=== PATIENT | female | born 1945 | race Caucasian/White ===

== ENCOUNTER 2016-03-06 14:28 | Emergency (ER) | payer MEDICARE, MEDICAID ==
[2016-04-06] MEDS ORDERED: CULTURELLE1 CAP PO (18:05)
[2016-04-06] MEDS ORDERED: PENTASA500 MG PO (18:05)
[2016-04-06] MEDS ORDERED: COLESTID1 GM PO (18:05)
[2016-04-06] MEDS ORDERED: LIPITOR DPS40 MG PO (18:06)
[2016-04-06] MEDS ORDERED: FEOSOL-DPS325 MG PO (18:06)
[2016-04-06] MEDS ORDERED: FOLVITE-DPS1 MG PO (18:06)
[2016-04-06] MEDS ORDERED: DESYREL-DPS50 MG PO (18:06)
[2016-04-06] MEDS ORDERED: LEXAPRO DPS20 MG PO (18:06)
[2016-04-06] MEDS ORDERED: NEURONTIN DPS600 MG PO (18:07)
[2016-04-06] MEDS ORDERED: VITAMIN B1100 MG PO (18:07)
[2016-04-06] MEDS ORDERED: PLAVIX75 MG PO (18:07)
[2016-04-06] MEDS ORDERED: PROTONIX40 MG PO (18:07)
[2016-04-06] MEDS ORDERED: MICRO-K DPS10 MEQ PO (18:07)
[2016-04-06] MEDS ORDERED: DUONEB DPS3 ML IH ×2 (18:08→18:11)
[2016-04-06] MEDS ORDERED: ZYLOPRIM-DPS300 MG PO (18:08)
[2016-04-06] MEDS ORDERED: VITAMIN D1000 UNI1 PO (18:08)
[2016-04-06] MEDS ORDERED: XALATAN2.5 ML OU (18:08)
[2016-04-06] MEDS ORDERED: NORCO 7.5-3251 EACH PO (18:09)
[2016-04-06] MEDS ORDERED: DURAGESIC-1212 MCG TD (18:09)
[2016-04-06] MEDS ORDERED: IMODIUM DPS2 MG PO (18:09)
[2016-04-06] MEDS ORDERED: CEPACOL SORE T1 EACH PO (18:09)
[2016-04-06] MEDS ORDERED: SURFAK DPS240 MG PO (18:10)
[2016-04-06] MEDS ORDERED: TYLENOL DPS325 MG PO (18:10)
[2016-04-06] MEDS ORDERED: TESSALON PERLE100 M1 PO (18:10)
[2016-04-06] MEDS ORDERED: XANAX DPS0.25 MG PO (18:10)
[2016-04-06] MEDS ORDERED: MAALOX DPS30 ML PO (18:10)
[2016-04-06] MEDS ORDERED: OCEAN NASAL MIS45 ML NS (18:11)
[2016-04-06] MEDS ORDERED: TEARS NATURAL D15 ML OU (18:12)
[2016-04-06] MEDS ORDERED: LOTRIMIN 1% DPS30 ML TP (18:12)
[2016-04-06] MEDS ORDERED: NITROSTAT0.4 MG SL (18:12)
--- NOTE | 2016-04-20 12:29 | ER ---
ADMIT: 03/06/2016 RM/LOC: [facility] MR#: [id number] [address] [address] [place] [address] Emergency Room Report SEX: F AGE: 70 : 1945 DATE: 03/06/2016 HISTORY OF PRESENT ILLNESS: The patient comes to the ER from [facility] because she is not acting like her normal self, and she has had a cough over the last day. When I talked to the patient, she states that she has a lot of pain in her vaginal area. She denies any vomiting or diarrhea or cough. PAST MEDICAL HISTORY: Anemia, atrial fibrillation, hypercholesterolemia, GERD, and depression. MEDICATIONS: See list. ALLERGIES: DYE AND ATIVAN. SOCIAL HISTORY: The patient comes from [facility]. PHYSICAL EXAMINATION: GENERAL: This is an alert, 70-year-old, white female. Temperature is 97.8, pulse 93, respirations 14, blood pressure is 130/71, and pulse ox is 98% on room air. HEENT: Eyes are clear. Head is normocephalic. TMs intact with normal light reflex. Posterior pharynx is benign. Oral mucosa moist. Nares are clear. NECK: Supple. HEART: Regular rhythm. LUNGS: Coarse sounds. She is coughing. ABDOMEN: Soft. GENITOURINARY: Vaginal area, she has quite a bit of swelling and redness and irritation in her labia and perineum area. She does have some pitting edema in her lower extremities. NEUROLOGIC: She answers questions and speaks appropriately. LABORATORY DATA: Her white count was 5.5, hemoglobin 9.3, hematocrit is 32.0, ADMIT: 03/06/2016 RM/LOC: [facility] MR#: [id number] 26[address] [facility] [address] [place] [phone] [place] [address] Emergency Room Report SEX: F AGE: 70 : 1945 and platelet count is 178. Sodium 148, potassium 3.7, BUN 6, creatinine is 0.9. AST and ALT are normal. I did have the nurse attempt to cath the patient, but because of the redness and irritation and pain, it was impossible to put a catheter in her. In the emergency room, we did have wound care look at her perineum, which was very red and irritated and she was also given Lasix 20 mg p.o. I did speak with Dr. Benitez, and we did discuss the skin tissues and the CHF issues as well, and the Wound Care will follow up in consult with her. DIAGNOSES: 1. Congestive heart failure. 2. Skin breakdown in the perineum area. Please see my T-sheet. PABLO Borrego / Leif Ness MD / millil JOB #: [id number] CC: Leif Ness MD, Attending Physician Abner Benitez MD, Family Physician
== END 2016-03-06 21:31 | disposition home or self-care (01) ==
LOC: ER 14:28
DX: I50.9 Heart failure, unspecified (principal); L98.8 Other specified disorders of the skin and subcutaneous tissue; E78.00 Pure hypercholesterolemia, unspecified; F32.9 Major depressive disorder, single episode, unspecified; Z91.09 Other allergy status, other than to drugs and biological substances

== ENCOUNTER 2016-04-03 12:36 | Inpatient (IN) | payer MEDICARE, MEDICAID ==
[~2016-04-03] VITALS: Ht 162.6 cm; Wt 69.3 kg
--- NOTE | ~2016-04-03 | WND ---
ADMIT: 04/03/2016 RM/LOC: 420 [facility] MR#: [id number] [address] [address] [place] [address] Wound Care Clinic SEX: F AGE: 70 : 1945 DATE OF VISIT: 04/04/2016 REASON FOR VISIT: Evaluation and treatment of right stump wound, left thigh ulceration, coccyx ulcer, and right groin. HISTORY OF PRESENT ILLNESS: Joan was admitted to the hospital on 04/03/2016, for COPD exacerbation/bronchitis. I had seen Joan in outpatient wound clinic on 04/02/2016. At that time, her right stump wound was resolved. However, staff noted today on admission that she has an ulcer to the right stump. Joan states that she uses her stump for transferring and she probably skinned it up. She reports that her bottom is quite sore. She denies any fever or chills. She states that she just has this cough and some shortness of breath. PAST MEDICAL HISTORY: She was hospitalized at [place] from February 18 through March 03, at which time, she was on the ventilator for 4-5 days. 1. Severe COPD, oxygen dependent. 2. Chronic respiratory failure with hypoxia. 3. Anemia of chronic disease. 4. Vitamin D deficiency. 5. Hyperlipidemia. 6. Major depressive disorder. 7. Generalized anxiety disorder. 8. Phantom limb pain. 9. Chronic atrial fibrillation. 10.Chronic diastolic congestive heart failure. 11.Severe peripheral vascular disease. 12.Inflammatory bowel disease colitis. 13.History of MRSA. 14.History of Clostridium difficile. 15.Long-term anticoagulation. 16.Atherosclerotic coronary vascular disease, status post previous stents. 17.Chronic nonhealing ulcer, right lateral stump. 18.Gout. ALLERGIES: The patient is allergic to iodine, clonazepam, lactose, and a questionable history of allergy to Levaquin. CURRENT MEDICATIONS: For dosages and routes, please see chart. 1. Allopurinol. 2. Cholecalciferol. 3. Atorvastatin. 4. Lexapro. 5. Ferrous sulfate. 6. Folic acid. 7. Lasix. 8. Latanoprost. 9. Protonix. 10.Plavix. 11.Trazodone. ADMIT: 04/03/2016 RM/LOC: 420 [facility] MR#: [id number] [address] [address] [place] [address] Wound Care Clinic SEX: F AGE: 70 : 1945 12.Colestipol. 13.Florastor. 14.Potassium. 15.Thiamine. 16.Methylene. 17.Gabapentin. 18.Tylenol. 19.Xanax. 20.Artificial Tears. 21.Dulcolax. 22.Cepacol. 23.Clotrimazole. 24.DuoNeb. 25.Duragesic patch. 26.Lortab. 27.Imodium A-D. 28.Milk of magnesia. 29.Nitrostat. 30.[place] spray. 31.Surfak. 32.Tessalon. FAMILY HISTORY: Joan reports that her father of lung cancer. Mother from cirrhosis. SOCIAL HISTORY: Joan lives in [facility]. She has been there since early January 2016. She is a former smoker, used to smoke 1-2 packs a day for 20 years, then stopped smoking until approximately a year ago. She reports that she is a recovered alcoholic. REVIEW OF SYSTEMS: She reports increasing sputum production with cough over the past 2-3 days. She also reports increased shortness of breath. She denies chest pain. She denies abdominal pain, nausea, or vomiting. She has had some chronic diarrhea. PHYSICAL EXAMINATION: VITAL SIGNS: Temperature 97.7 degrees Fahrenheit, pulse 93, respirations 20, blood pressure 111/64, pulse ox 100% on 2 L of oxygen. GENERAL: Assessment reveals an alert and oriented 70-year-old female, in no acute distress. Assessment of her right stump reveals a superficial skin abrasion that measures 1.5 cm in width x 0.7 cm in length. Wound bed is 100% pink. No periwound erythema is noted. No drainage is noted. Assessment of her right groin reveals a 0.3 cm circumferential wound that is 0.2 cm in depth. Wound bed is 100% pink. No drainage is noted. Graft site to left anterior thigh is well healed. The skin is slightly dry. Eleanor has ADMIT: 04/03/2016 RM/LOC: 420 [facility] MR#: [id number] [address] [place] [id number] [place] [address] Wound Care Clinic SEX: F AGE: 70 : 1945 a 4.5 cm wide by 1.6 cm long by 0.2 cm deep ulcer with pink wound bed and callused periwound skin. No periwound erythema. No drainage is noted. ASSESSMENT AND PLAN: 1. Healed graft site to left thigh. I told Joan she needs to apply Aloe Holly to this left thigh area 2-3 times daily to keep that soft and moisturize. 2. Growing ulcer on the right side. Staff can continue to apply Aloe Holly in her groin area over the wound. If it starts to drain, we will have to rethink this dressing. 3. Stage II pressure ulcer to coccyx area. They will apply Sensi-Care 4 times daily and as needed. She needs a low air loss mattress on her bed and she needs an air cushion in her wheelchair. She was instructed on how to reposition so that that area is not sustaining any pressure. She voices understanding. 4. Superficial ulcer to the right above knee amputation site. To this area, we are going to apply Xeroform gauze and a Mepilex border and have them change this twice weekly. Joan will follow up with us in outpatient Wound Clinic next week as she is anticipating discharge soon back to [place]. I would like to thank Dr. Benitez for allowing us to participate in Joan's care. Chrissie Agarwal APRN/ tiera JOB #: [id number] CC: Abner Benitez MD, Attending Physician Abner Benitez MD, Family Physician
--- NOTE | ~2016-04-03 | WND ---
ADMIT: 04/03/2016 RM/LOC: 420 [facility] MR#: [id number] [address] [address] [place] [address] Wound Care Clinic SEX: F AGE: 70 : 1945 DATE OF VISIT: 04/05/2016 CHIEF COMPLAINT: Ulcer to her right stump and pressure ulcer to her gluteal cleft. ASSESSMENT: Joan reports that she is getting to go back to the [facility] today, after a 2-day stay for COPD exacerbation/bronchitis. She states she feels good. She currently is denying any fevers or complaints of shortness of breath. She is sitting in her chair without her oxygen on. Assessment of her right stump reveals an intact Mepilex border dressing. There is no strike through noted on the dressing. Assessment of her ulcer to her buttocks reveals a full-thickness ulcer that spreads across both right and left sides of the gluteal cleft. It is tender to palpation. It continues to be dry. Staff has Sensi-Care on it right now. 1. Healed graft site to the left thigh. 2. Groin ulcer on the right side. 3. Stage II pressure ulcer to coccyx. 4. Resolving ulcer to the right above knee amputation site. PLAN: We will discharge her back to the [facility], [place], and Wound Care will follow up with her in outpatient wound clinic next week. They will have orders to change the dressing to her left stump on discharge. They will continue with the Sensi-Care 4 times daily to her buttocks. Chrissie Agarwal APRN/ tiera JOB #: [id number] CC: Abner Benitez MD, Attending Physician Abner Benitez MD, Family Physician
--- NOTE | 2016-04-05 20:46 | HP ---
ADMIT: 04/03/2016 RM/LOC: 420 [facility] MR#: [id number] [address] [address] [place] [address] History and Physical SEX: F AGE: 70 : 1945 DATE OF SERVICE: CHIEF COMPLAINT: Fever, cough, and shortness of breath. CLINICAL HISTORY: The patient is a 70-year-old white female, resident at [facility], who is chronically ill, who has had multiple hospitalizations over the last 8 months, having spent from August of 2015 through January of 2016, essentially, hospital confined for the entire 5 months at [facility]. The patient was transferred to [facility] for rehab. In early January of 2016, she had only been at the care home for approximately a month when she presented to [facility] with sepsis and hypotension on 02/19/2016. She was hospitalized here at [facility] from 02/19/2016 through 03/03/2016, with pneumonia, sepsis, respiratory failure, and congestive heart failure requiring ventilator support. The patient had the onset of upper respiratory symptoms on 04/01/2016, with nasal congestion and sinus congestion. On 04/02/2016, she started to notice increased cough and was slightly more short of breath with activities. On the morning of 04/03/2016, in addition to her cough and shortness of breath, she spiked temperature at the care home to 101.2. Her blood pressures were noted to have dropped. She normally runs a fairly low systolic blood pressure in the range of 100-110 but she has running blood pressures of 80-90 systolic at the care home. In view of her hypotension and fever with history of precarious respiratory status, it was felt best to transfer to the ER, was transferred to the ER where she was evaluated by Dr. Feliz, who noted that her white count was essentially normal at 10,000. Her procalcitonin and lactic acid in the ER were normal. Her urinalysis was clear. Her chest x-ray showed changes of COPD with some mild pulmonary vascular congestion but no evidence of pneumonia. Her only concerning finding in the emergency room was that she was hypotensive with blood pressures systolic in the 80-90 range. They did respond to a fluid bolus but given her past history of recurring sepsis and severe COPD with chronic respiratory failure, it was felt best to admit for aggressive treatment of this upper respiratory infection with bronchitis. PAST MEDICAL HISTORY: Recent hospitalizations: As noted, she was hospitalized here at [facility] from 02/19/2016 through 03/03/2016. The majority of that hospitalization was in the ICU. She was on the ventilator for 4-5 days during her last admission. She has been hospitalized as noted almost continuously from August of 2015 through January of 2016 at [facility]. During that extended hospital stay, she has struggled with recurring sepsis. 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 Her chronic medical problems are noted to include: 1. Severe COPD, O2 dependent. 2. Chronic respiratory failure with hypoxia. 3. Anemia of chronic disease. 4. Vitamin D deficiency. 5. Hyperlipidemia. 6. Major depressive disorder. ADMIT: 04/03/2016 RM/LOC: 420 [facility] MR#: [id number] [address] [place] [phone] [place] [address] History and Physical SEX: F AGE: 70 : 1945 7. Generalized anxiety disorder. 8. Phantom limb pain. 9. Chronic atrial fibrillation. 10.Chronic diastolic congestive heart failure. 11.Severe peripheral vascular disease. 12.Inflammatory bowel disease/colitis. 13.History of MRSA. 14.History of C difficile. 15.Long-term anticoagulation. 16.Atherosclerotic coronary vascular disease, status post previous stents x3. 17.Chronic nonhealing ulcer, right lateral stump. 18.Gout. PAST SURGICAL HISTORY: Previous surgical procedures include right above knee amputation in 2016 as well as previous heart catheterization and placement of stents x3. ALLERGIES: THE PATIENT IS ALLERGIC TO IODINE, CLONAZEPAM, LACTOSE, AND HAS QUESTIONABLE HISTORY OF ALLERGY TO LEVAQUIN. CURRENT MEDICATIONS: Include: 1. Allopurinol 300 mg daily. 2. Cholecalciferol 2000 units daily. 3. Atorvastatin 40 mg at bedtime. 4. Lexapro 20 mg daily. 5. Ferrous sulfate 325 mg daily. 6. Folic acid 5 mg daily. 7. Lasix 20 mg daily. 8. Latanoprost ophthalmic drops 0.005%, 1 drop daily in both eyes. 9. Protonix 40 mg daily at bedtime. 10.Plavix 75 mg daily. 11.Trazodone 75 mg at bedtime. 12.Colestipol 1 g twice daily. 13.Florastor 250 mg daily. 14.Potassium 10 mEq twice a day. 15.Thiamine 100 mg twice daily. 16.Mesalamine DR 500 mg t.i.d. 17.Gabapentin 600 mg q.i.d. 18.Tylenol 650 mg every 4 hours for minor discomfort. 19.Xanax 0.25 mg every 8 hours p.r.n. anxiety. 20.Artificial Tears 1 drop both eyes 3 times a day for dry eyes. 21.Dulcolax suppository p.r.n. 22.Cepacol lozenges p.r.n. 23.Clotrimazole 1% solution applied to the groin for monilial rash p.r.n. 24.DuoNeb via twin jet nebulizer every 4 hours p.r.n. 25.Duragesic 12 mcg patch, changed every 72 hours for chronic pain. 26.Lortab 7.5/325, 1 every 4 hours for pain. ADMIT: 04/03/2016 RM/LOC: 420 [facility] MR#: [id number] 2[address] [facility] [address] [place] [phone] ISMAEL JEREZ [facility] [place] [address] History and Physical SEX: F AGE: 70 : 1945 27.Imodium A-D 1 mg 1 tab every 4 hours as needed for diarrhea. 28.Milk of magnesia 30 mL p.r.n. constipation. 29.Nitrostat sublingual p.r.n. chest pain. 30.[place] nasal spray 2 each nostril q.i.d. p.r.n. 31.Surfak 240 mg twice daily p.r.n. 32.Tessalon Perles 200 mg every 6 hours as needed for cough. FAMILY HISTORY: The patient notes that her father of lung cancer. Mother from cirrhosis. She is unaware of any other significant family history. She has no close living relatives. SOCIAL HISTORY: The patient currently resides at [facility]. She has been there since early January of 2016. She is a former smoker, used to smoke 1-2 packs a day for a long period of time, then stopped smoking until approximately a year two ago. She denies any past history of alcohol or drug abuse. The patient's power of attorneys are Jorge and Sheri Arboleda. The patient, prior to being hospitalized in [place] in August, had been living in an assisted living facility in [place]. REVIEW OF SYSTEMS: CONSTITUTIONAL: She had been doing fairly well at the care home until 2-3 days ago, onset of upper respiratory symptoms with congestion and cough over the last 2 to 3 days, spiked temp for the first time on the morning of admission. Appetite has been good. HEENT: She denies any new vision or hearing complaints. She is complaining of some nasal congestion, sinus congestion, and scratchy throat. PULMONARY: The patient has severe COPD, was a former heavy smoker, history of chronic respiratory failure with hypoxia. She is having some mild amount of sputum production. No hemoptysis. No pleuritic chest pain. CARDIAC: Extensive cardiac history, including placement of stents on 3 prior occasions. She denies any recent chest pain or angina, does have history of paroxysmal atrial fibrillation. GASTROINTESTINAL: History of some chronic GERD and acid reflux. No recent vomiting, does have a history of chronic diarrhea but stools have been fairly solid here recently. No blood in the stools. Past history of C difficile. GENITOURINARY: Usually continent of urine. No flank pain or dysuria, has had some ongoing skin breakdown over the vulva and perineal area. No other genitourinary complaints. MUSCULOSKELETAL: Persistent phantom limb pain, right lower extremity. Pain in the left knee due to advanced degenerative arthritis, also has some ischemic foot pain in the left leg due to her peripheral vascular disease. NEUROLOGIC: No new focal symptoms. No lightheadedness, dizziness, or syncope. PSYCHIATRIC: History of long-standing depression. ENDOCRINE: No history of diabetes. INTEGUMENT: The patient has been battling an ulcer on her right AK stump, also has had some chronic perineal and gluteal skin breakdown, is followed by [facility]. ADMIT: 04/03/2016 RM/LOC: 420 [facility] MR#: [id number] [address] [place] [phone] [place] [address] History and Physical SEX: F AGE: 70 : 1945 PHYSICAL EXAMINATION: VITAL SIGNS: At this time, temp 95.1 pulse 80, respirations 18, blood pressure after fluid bolus in the ER 114/70, O2 saturation 98%. Current weight 143 pounds. GENERAL: The patient is a very frail, debilitated, 70-year-old female, who appears older than her stated age. At this point, she is in no acute distress. She is oriented x3. ENT: Her ears are clear. Pupils are equal and reactive. Sclerae nonicteric. Conjunctivae are noninflamed. She does have some mucoid nasal congestion. Nasal mucosa inflamed. Throat is mildly inflamed with postnasal drainage present. On exam of her neck, her thyroid is not enlarged. She has no cervical adenopathy. No neck vein distention noted at this time. No carotid bruit. LUNGS: At this time are diminished throughout. She has scattered coarse rhonchi, some upper airway wheezes. She is very diminished in the bases. HEART: At this time is noted to have an irregular rhythm. She appears to be in atrial fibrillation with rate controlled. No significant murmur noted. ABDOMEN: Soft, slightly protuberant but nondistended bowel sounds are normoactive. She has no tenderness to palpation. No CVA or suprapubic tenderness. No abdominal masses. No hernia is noted. EXTREMITIES: She has had [id number] amputation of her right lower extremity. She does have superficial ulcer on the right lateral aspect of the stump. This actually had almost completely healed and looks clean without evidence of infection. Her left lower extremity has a trace of edema, marked changes of peripheral vascular disease, no pedal pulses, severe degenerative arthritis of the left knee. Exam of her skin of her perineum and buttock shows marked improvement in her chronic perineal and vulvar rash which is a minimal erythema and skin irritation at this time. NEUROLOGICAL: Cranial nerves II through XII are grossly intact. I cannot appreciate any focal deficits. She is unable to stand because of her previous amputation she has marked generalized weakness. She has mild neurocognitive impairment. Her short-term memory is somewhat poor but she is oriented to place, and person today. Her pre-admission laboratory work revealed on CBC showed white count of 10,000, hemoglobin 9.4, hematocrit 32.6, platelets 270,000. INR was 1.22. Her urinalysis was clear with negative nitrites, negative leukocyte esterase. Procalcitonin was 1.36. Lactic acid was 0.9, both normal sodium 137, potassium 4.6, BUN 34, creatinine 1.2. Blood sugar was 106, magnesium 2.0. A Chest x-ray showed changes of COPD but no acute infiltrates. No evidence of failure. ASSESSMENT AT THE TIME OF ADMISSION: 1. Acute chronic obstructive pulmonary disease exacerbation. 2. Upper respiratory infection with acute bronchitis. 3. Severe chronic obstructive pulmonary disease, O2 dependent. 4. Chronic respiratory failure with hypoxia. 5. Fever and hypotension rule out sepsis. 6. Status post right AK amputation. 7. Severe peripheral vascular disease. 8. Atherosclerotic coronary vascular disease with angina pectoralis. ADMIT: 04/03/2016 RM/LOC: 420 [facility] MR#: [id number] [address] [address] [place] [address] History and Physical SEX: F AGE: 70 : 1945 9. SA node dysfunction with chronic atrial fibrillation. 10.Chronic diastolic congestive heart failure. 11.Ongoing Eliquis anticoagulation. 12.Anemia of chronic disease. 13.Inflammatory bowel disease with chronic diarrhea. 14.Hyperlipidemia. 15.Marked debility. PLAN: Plan is to admit the patient. We will treat aggressively with nebulizer treatments. We will cover her with IV Zosyn for what appears to be an acute bronchitis causing a COPD exacerbation. We will monitor closely for worsening of her condition, one to avoid if possible allowing her to progress on into sepsis. Abner Benitez MD/ millil JOB #: [id number] CC: Abner Benitez MD, Attending Physician Abner Benitez MD, Family Physician
[2016-04-06] MEDS ORDERED: COLESTID1 GM PO (18:05)
[2016-04-06] MEDS ORDERED: PENTASA500 MG PO (18:05)
[2016-04-06] MEDS ORDERED: CULTURELLE1 CAP PO (18:05)
[2016-04-06] MEDS ORDERED: DESYREL-DPS50 MG PO (18:06)
[2016-04-06] MEDS ORDERED: LIPITOR DPS40 MG PO (18:06)
[2016-04-06] MEDS ORDERED: LEXAPRO DPS20 MG PO (18:06)
[2016-04-06] MEDS ORDERED: FOLVITE-DPS1 MG PO (18:06)
[2016-04-06] MEDS ORDERED: FEOSOL-DPS325 MG PO (18:06)
[2016-04-06] MEDS ORDERED: VITAMIN B1100 MG PO (18:07)
[2016-04-06] MEDS ORDERED: MICRO-K DPS10 MEQ PO (18:07)
[2016-04-06] MEDS ORDERED: PLAVIX75 MG PO (18:07)
[2016-04-06] MEDS ORDERED: NEURONTIN DPS600 MG PO (18:07)
[2016-04-06] MEDS ORDERED: PROTONIX40 MG PO (18:07)
[2016-04-06] MEDS ORDERED: ZYLOPRIM-DPS300 MG PO (18:08)
[2016-04-06] MEDS ORDERED: VITAMIN D1000 UNI1 PO (18:08)
[2016-04-06] MEDS ORDERED: DUONEB DPS3 ML IH ×2 (18:08→18:11)
[2016-04-06] MEDS ORDERED: XALATAN2.5 ML OU (18:08)
[2016-04-06] MEDS ORDERED: DURAGESIC-1212 MCG TD (18:09)
[2016-04-06] MEDS ORDERED: CEPACOL SORE T1 EACH PO (18:09)
[2016-04-06] MEDS ORDERED: IMODIUM DPS2 MG PO (18:09)
[2016-04-06] MEDS ORDERED: NORCO 7.5-3251 EACH PO (18:09)
[2016-04-06] MEDS ORDERED: XANAX DPS0.25 MG PO (18:10)
[2016-04-06] MEDS ORDERED: SURFAK DPS240 MG PO (18:10)
[2016-04-06] MEDS ORDERED: MAALOX DPS30 ML PO (18:10)
[2016-04-06] MEDS ORDERED: TYLENOL DPS325 MG PO (18:10)
[2016-04-06] MEDS ORDERED: TESSALON PERLE100 M1 PO (18:10)
[2016-04-06] MEDS ORDERED: OCEAN NASAL MIS45 ML NS (18:11)
[2016-04-06] MEDS ORDERED: TEARS NATURAL D15 ML OU (18:12)
[2016-04-06] MEDS ORDERED: LOTRIMIN 1% DPS30 ML TP (18:12)
[2016-04-06] MEDS ORDERED: NITROSTAT0.4 MG SL (18:12)
--- NOTE | 2016-04-20 23:49 | ER ---
ADMIT: 04/03/2016 RM/LOC: 420 [facility] MR#: [id number] [address] [address] [place] [address] Emergency Room Report SEX: F AGE: 70 : 1945 DATE: 04/03/2016 CHIEF COMPLAINT: Fever and short of breath. HISTORY OF PRESENT ILLNESS: The patient is a 70-year-old female with multiple medical problems, comes in from [facility] with complaints of some increased shortness of breath for the past couple of days and reported fever at the [facility]. When I spoke to her, she actually states that she only has minimal shortness of breath. Denies any chest pain. She is unsure if she has felt like she has had any fevers and denies any chills. She does not have any abdominal pain, nausea, or vomiting. REVIEW OF SYSTEMS: Ten-point review of systems is done and otherwise negative except as in HPI. PAST MEDICAL HISTORY: Significant for coronary artery disease, CVA, CHF, severe COPD, history of atrial fibrillation, peripheral vascular disease, high cholesterol, and history of respiratory failure. MEDICATIONS: See nurse's note. ALLERGIES: TO ATIVAN. SOCIAL HISTORY: Smoked most of her adult life but quit approximately 16 years ago. She denies drug or alcohol use. PHYSICAL EXAMINATION: See T-sheet. EMERGENCY DEPARTMENT COURSE: The patient presented. She was 78% on room air. We put her on 2 L and her sats came up to the mid to high 90s. Her blood pressures were running a little low in the Emergency Department with systolic pressures in 80s and 90s and her MAP was in the upper 50s to mid 60s. We did go ahead and get her some IV fluids while in the Emergency Department, gave her Solu-Medrol 125 mg IV. Got her a breathing treatment. She really has no complaints for me in the Emergency Department. Labs show that her hemoglobin is low at 9.4, but is not new for her. Lactic acid is 0.9. Cardiac enzymes ADMIT: 04/03/2016 RM/LOC: 420 [facility] MR#: [id number] [address] [address] [place] [address] Emergency Room Report SEX: F AGE: 70 : 1945 showed normal CK and CK-MB with troponin of 0.051. BUN is 34, creatinine is 1.2 which is also not abnormal for her. INR is 1.22. ABG on oxygen shows pH of 7.31, pCO2 of 52.5, and PO2 of 77. Her EKG showed sinus rhythm with rate of 98, no signs of ST-elevation or acute IN. I do not see any acute findings on her chest x-ray. The patient will be admitted to Dr. Benitez with IV steroids and IV antibiotics with 1st dose to be given in the Emergency Department. DIAGNOSES: 1. Shortness of breath. 2. Chronic obstructive pulmonary disease exacerbation. 3. Hypotension. Madhu Feliz MD/ millil JOB #: [id number] CC: Abner Benitez MD, Attending Physician Abner Benitez MD, Family Physician
--- NOTE | 2016-05-02 09:47 | DS ---
ADMIT: 04/03/2016 RM/LOC: 420 [facility] MR#: [id number] [address] [address] [place] [address] General Discharge Summary SEX: F AGE: 70 : 1945 ADMISSION DATE: 04/03/2016 DISCHARGE DATE: 04/05/2016 ADMITTING DIAGNOSIS: As per history and physical. FINAL DIAGNOSES: 1. Severe chronic obstructive pulmonary disease with acute exacerbation. 2. Chronic respiratory failure with hypoxia. 3. Stage II pressure ulcer of the sacral region. 4. Chronic diastolic congestive heart failure. 5. Hypotension. 6. Congestive heart failure. 7. Chronic atrial fibrillation. 8. Gout/hyperuricemia. 9. Atherosclerotic coronary vascular disease. 10.Acute bronchitis. 11.Chronic obstructive pulmonary disease with acute lower respiratory infection. 12.Chronic diarrhea. 13.Peripheral vascular disease. 14.Anemia of chronic disease. 15.Hyperlipidemia. 16.Chronic gastroesophageal reflux disease. 17.Vitamin D deficiency. 18.Major depressive disorder. 19.Generalized anxiety disorder. 20.Phantom limb pain. 21.Prior history of methicillin-resistant Staphylococcus aureus. 22.Tobacco use disorder, in full sustained remission. 23.Chronic cerebrovascular disease with history of prior transient ischemic attack. 24.Atherosclerotic coronary vascular disease, status post previous PTCA with stent. 25.Ongoing anticoagulation. 26.Status post right above-knee amputation. COMPLICATIONS: None. OPERATIONS: None. CLINICAL HISTORY: Joan is a very debilitated, chronically ill 70-year-old, white female, who is a resident at [facility]. The patient has been a resident at [facility] since January of 2016. She has a history of recurrent hospitalizations for COPD exacerbation and exacerbation of her chronic heart failure. She was last hospitalized here at [facility] in February of 2016 and did require ventilator support during that hospitalization. The patient, as noted at the halfway, to have had increased cough and shortness of breath the day prior to admission. She spiked a temperature on the morning of admission to 101.2 at the halfway. ADMIT: 04/03/2016 RM/LOC: 420 [facility] MR#: [id number] [address] [address] [place] [address] General Discharge Summary SEX: F AGE: 70 : 1945 She was transferred to the ER for evaluation. When seen in the ER, her blood pressure was low at 88/40. She had a normal white count and normal lactic acid. Chest x-ray did not show any acute pneumonia, but given her fever, cough, and hypoxia, it was felt that she had acute bronchitis causing COPD exacerbation, and given her very unstable cardiopulmonary status, it was felt best to admit. For further details of her clinical history as well as past medical history and pertinent findings on physical exam, please see dictated history and physical. LABORATORY AND X-RAY SUMMARY FROM THIS ADMISSION: Her initial CBC showed a white count of 10,000, hemoglobin 9.4, hematocrit 32.6. Repeat CBC on 04/04/2016 showed a white count of 3900, hemoglobin 9.9, hematocrit 34.5. Her INR on admission was 1.22. Urinalysis on admission was clear. Chemistry studies on admission showed a sodium of 137, potassium 4.6, BUN 34, creatinine 1.2. Her serum albumin was low at 2.9. At discharge, her sodium was 140, potassium 4.5, BUN 18, creatinine 1.3. Her proBNP was elevated at 8705. Procalcitonin was normal on admission. Lactic acid on admission was 0.9. Procalcitonin was 1.36. Blood gases done on admission showed a pH of 7.31, pCO2 of 52, PO2 of 77. Blood cultures drawn on admission showed no growth. Sputum cultures grew out only normal erica. Respiratory viral panel was negative for all targeted viral pathogens. Her blood type was noted to be AB negative. Her chest x-ray showed no acute infiltrates and actual previous clearing of bibasilar airspace disease that was noted on her final chest x-ray from her prior admission in February of 2016. Subsequent chest x-ray showed no significant opacities or infiltrates. She was noted to have some mild pulmonary vascular congestion. Her EKG showed a sinus rhythm with nonspecific ST-T wave changes. Serial EKG showed no other acute signs of ischemia. HOSPITAL COURSE: The patient was admitted because of her very precarious respiratory status and aggressively treated. She was started on IV Zosyn and IV Levaquin with frequent nebulizer treatments. Her chest x-rays failed to show any pneumonia. We treated her for what was felt to be an acute bronchitis with subsequent COPD exacerbation. She was also treated with IV Solu-Medrol as well as the IV antibiotics. By her second hospital day, she was feeling better. Her temps remained normal. Her blood pressures responded to fluid resuscitation. By her third hospital day, she was feeling significantly better, having no respiratory symptoms and was felt safe to transfer her back to [facility]. Throughout the course of the hospitalization, we had Wound Therapy following her for her area of sacral skin breakdown as well as the breakdown on her right AK stump. The patient was transferred back to [facility] on the following medications: 1. Colestid 1 g b.i.d. 2. Culturelle 1 cap b.i.d. 3. Mesalamine or Delzicol 400 mg t.i.d. 4. Desyrel 75 mg at bedtime. 5. Ferrous sulfate 325 mg daily. 6. Folic acid 5 mg daily. 7. Lexapro 20 mg daily. ADMIT: 04/03/2016 RM/LOC: 420 [facility] MR#: [id number] [address] [address] [place] [address] General Discharge Summary SEX: F AGE: 70 : 1945 8. Lipitor 40 mg at bedtime. 9. Micro-K 10 mEq b.i.d. 10.Neurontin 600 mg q.i.d. 11.Plavix 75 mg daily. 12.Protonix 40 mg at bedtime. 13.Vitamin B 100 mg b.i.d. 14.Vitamin D 2000 units daily. 15.Zyloprim 300 mg daily. 16.DuoNeb via twin jet nebulizer q.i.d. 17.Xalatan ophthalmic drops 1 drop both eyes at bedtime. 18.Duragesic 12 mcg patch changed every 72 hours for chronic pain. 19.Hydrocodone 7.5 mg one every 4 hours for breakthrough pain. 20.Imodium 2 mg q.4 hours p.r.n. diarrhea. 21.Maalox p.r.n. indigestion. 22.Tessalon Perles 200 mg q.6 hours p.r.n. cough. 23.Tylenol 650 mg every 6 hours p.r.n., minor discomfort. 24.Xanax 0.25 mg q.6 hours p.r.n. anxiety. 25.DuoNeb via twin jet nebulizer q.4 hours p.r.n. 26.Early Nasal [place] 2 whiffs each naris p.r.n. 27.Natural Tears p.r.n. 28.Nitrostat sublingual p.r.n. chest pain. 29.Lotrimin cream applied to her groin and perineal area b.i.d. p.r.n. 30.Lasix 20 mg daily. 31.Prednisone 10 mg one t.i.d. for 3 days, then b.i.d. for 3 days, then 1 daily for 3 days, then 1/2 tablet daily for 3 days. 32.Augmentin 875 mg t.i.d. for 7 days. CONDITION AT DISCHARGE: Stable and improved. PROGNOSIS: Long-term prognosis is extremely poor in view of the severity of her cardiopulmonary disease. I will see her for followup at the halfway in 5 to 7 days. Abner Benitez MD/ tiera JOB #: [id number] CC: Abner Benitez MD, Attending Physician Abner Benitez MD, Family Physician
== END 2016-04-05 12:31 | DRG 191 ==
LOC: ER 12:36 → 4PCU 15:25
PROVIDERS: ADMIT Family Medicine
DX: J44.1 Chronic obstructive pulmonary disease with (acute) exacerbation (principal); J96.11 Chronic respiratory failure with hypoxia; L89.152 Pressure ulcer of sacral region, stage 2; I50.32 Chronic diastolic (congestive) heart failure; I95.9 Hypotension, unspecified; I50.9 Heart failure, unspecified; I48.2 Chronic atrial fibrillation; M10.9 Gout, unspecified; I25.10 Atherosclerotic heart disease of native coronary artery without angina pectoris; J20.9 Acute bronchitis, unspecified; J44.0 Chronic obstructive pulmonary disease with (acute) lower respiratory infection; K58.0 Irritable bowel syndrome with diarrhea; I73.9 Peripheral vascular disease, unspecified; D63.8 Anemia in other chronic diseases classified elsewhere; E78.00 Pure hypercholesterolemia, unspecified; K21.9 Gastro-esophageal reflux disease without esophagitis; E55.9 Vitamin D deficiency, unspecified; S70.311A Abrasion, right thigh, initial encounter; F32.9 Major depressive disorder, single episode, unspecified; F41.1 Generalized anxiety disorder; G54.6 Phantom limb syndrome with pain; Z86.14 Personal history of Methicillin resistant Staphylococcus aureus infection; Z87.891 Personal history of nicotine dependence; Z86.73 Personal history of transient ischemic attack (TIA), and cerebral infarction without residual deficits; Z95.5 Presence of coronary angioplasty implant and graft; Z79.01 Long term (current) use of anticoagulants

== ENCOUNTER 2016-04-17 08:46 | Inpatient (IN) | payer MEDICARE, MEDICAID ==
[~2016-04-17] VITALS: Ht 162.6 cm; Wt 67.0 kg
--- NOTE | ~2016-04-17 | OR ---
ADMIT: 04/17/2016 RM/LOC: 308 [facility] MR#: [id number] [address] [address] ISMAEL JEREZ [place], [place] [id number] Operative/Delivery Room Report SEX: F AGE: 70 : 1945 SURGERY DATE: 04/17/2016 SURGEON: Judson Ennis MD PROCEDURE: Left subclavian catheter placed. After sterile gown, mask, and gloves were used, we did obtain a time out and a permit to proceed with left- sided subclavian given the fact there was a right IJ. The patient was in Trendelenburg position and after we were able to place a sterile barrier after Hibiclens cleanser over the left subclavian site was obtained. Using a sterile glove, gown, and mask anesthesia, we were able to localize the area with some Xylocaine and then following this, using a guide catheter into the left subclavian vein with the first stick, we were able to then place the guidewire through the guide catheter, removing the guide catheter and placing over the guidewire a dilating catheter, which was easily accessed. Following this, removing the dilating catheter we were able to thread over the guidewire a triple lumen catheter into the subclavian without any difficulty. She tolerated this remarkably well, discharged in satisfactory condition. After we sutured this in place, we were able to localize it with an op site over the area and flushed these that were replaced with saline flush. She tolerated this remarkably well. Chest x-ray postop demonstrated no pneumothorax. Judson Ennis MD/ tiera JOB #: [id number] CC: Abner Benitez, Attending Physician Abner Benitez, Family Physician
[~2016-04-17 08:46] MED LIST: CEPACOL SORE T1 EACH PO; COLESTID1 GM PO; CULTURELLE1 CAP PO; DESYREL-DPS50 MG PO; DUONEB DPS3 ML IH; DURAGESIC-1212 MCG TD; FEOSOL-DPS325 MG PO; FOLVITE-DPS1 MG PO; IMODIUM DPS2 MG PO; LEXAPRO DPS20 MG PO; LIPITOR DPS40 MG PO; LOTRIMIN 1% DPS30 ML TP; MAALOX DPS30 ML PO; MICRO-K DPS10 MEQ PO; NEURONTIN DPS600 MG PO; NITROSTAT0.4 MG SL; NORCO 7.5-3251 EACH PO; OCEAN NASAL MIS45 ML NS; PENTASA500 MG PO; PLAVIX75 MG PO; PROTONIX40 MG PO; SURFAK DPS240 MG PO; TEARS NATURAL D15 ML OU; TESSALON PERLE100 M1 PO; TYLENOL DPS325 MG PO; VITAMIN B1100 MG PO; VITAMIN D1000 UNI1 PO; XALATAN2.5 ML OU; XANAX DPS0.25 MG PO; ZYLOPRIM-DPS300 MG PO
--- NOTE | 2016-04-20 12:29 | ER ---
ADMIT: 04/17/2016 RM/LOC: ER [facility] MR#: [id number] [address] [address] [place] [address] Emergency Room Report SEX: F AGE: 70 : 1945 DATE: 04/17/2016 ADDENDUM: A 70-year-old white female, not a historian, coming in from group home with respiratory distress and low blood pressure. She obviously has sepsis and sepsis was initiated. She also has a history of severe cardiovascular disease, peripheral vascular disease, heart failure as well. Supportive therapy was initiated with IV fluid and Levophed. Initially, we were careful on the fluid because of her poor vascular system. During this time, I had also spoke with Dr. Benitez to confirm her advanced directives. Even with her severe end-stage diseases, she is still a full code, so I went ahead and intubated her. Without problem, she is on the vent. Also at this time, she had poor venous access, so I put a right-sided external jugular in without problem. Lab shows white count of 23,000, hemoglobin 9.6, creatinine is 1.8. Her lytes are essentially negative. Her INR is 1.21. As noted, BNP was 16,973 which is on the chronic side. Troponin of 0.191. Creatinine is 1.8 at this time. Chest x-ray showed pulmonary edema versus underlying pneumonia, cannot be ruled out. She got Zosyn and vancomycin down here. She got her full 30 mL/kg fluid while she was here. Dr. Benitez will admit her to ICU. She is still a full code. CONDITION ON DISCHARGE: Critical. Leif Ness MD/ tiera JOB #: [id number] CC: Leif Ness MD, Attending Physician UNKNOWN, Family Physician
--- NOTE | 2016-04-20 16:53 | OR ---
ADMIT: 04/17/2016 RM/LOC: 308 [facility] MR#: [id number] [address] [address] [place] [address] Operative/Delivery Room Report SEX: F AGE: 70 : 1945 SURGERY DATE: 04/17/2016 SURGEON: Judson Ennis MD PROCEDURE: Bronchoscopy. INDICATION: Acute left lung whiteout with rule-out endobronchial process. POSTOPERATIVE DIAGNOSES: 1. A large amount of phlegm in the right main stem of the ET tube in the right main stem, pulled back to the main trachea renate 3 cm above the main trachea renate. 2. Bronchoalveolar lavage carried out in the right lower lobe. DESCRIPTION OF PROCEDURE: After the patient was placed, a timeout was performed. The patient was already intubated on the mechanical ventilator on 100% FiO2. Saturation remained above 88% throughout the entire time and following intubation, we were able to place the bronchoscope into the airway, appeared to be in the mainstem. We repositioned the endotracheal tube to approximately 21 cm at the teeth. She tolerated this remarkably well. Following this, bronchoalveolar lavage was carried out. About 100 mL of saline was used in typical fashion in the right lower lobe. Careful inspection of the right upper, middle, and lower lobe, left upper lingula and lower lobe showed that the right lung had a marked amount of edema and some foreign-body like material was noted in the right mainstem. Left side was entirely clear. There was no evidence of any pneumothorax seen postoperatively, and the patient tolerated the procedures. Saturation remained above 90% the entire time, heart rate of 80. Judson Ennis MD/ tiera JOB #: [id number] CC: Abner Benitez, Attending Physician Abner Benitez, Family Physician
--- NOTE | 2016-04-20 16:53 | CO ---
ADMIT: 04/17/2016 RM/LOC: 308 [facility] MR#: [id number] [address] [address] [place] [address] Consultation SEX: F AGE: 70 : 1945 DATE OF CONSULTATION: 04/17/2016 ATTENDING PHYSICIAN: Abner Benitez CONSULTING PHYSICIAN: Judson Ennis MD REASON FOR CONSULTATION: This is an evaluation regarding this lady with acute massive left-sided pneumonia, fever, cough, short of breath with hypotension, septic syndrome, septic shock. HISTORY OF PRESENT ILLNESS: This is a 70-year-old white female resident of the [facility], who has been chronically ill now, recently hospitalized here in February 18 through at [place], who has had rather tremendous struggle over the past few months and apparently, she was 8 months living from August 2015 through January 2016 in the [facility] as well as transferred to [place] for rehab and then she is here now for sepsis and hypotension; similar to that of the evaluation, however, of the February admission. However, now she is quite hypotensive in the 60s to 70s range and she is then developing what appears to be traumatic hypotension, and although she had 2 L of saline in the ER, now with intubation. A small central line was inserted but I think she needs triple- lumen catheter to be placed as well as see we could monitor again and get ventilation for her. After pull back, the ET tube was approximately at the right main stem, and this has been performed. She has NG tube placed in for the large stomach bubble that we can see. Otherwise, past history is unable to get. Apparently, we talked with the power of immigration attorney and they wanted to be a full code. At this time, she has a fairly low blood pressure about 100 to 90 so in the [facility] and she has been hypotensive now intermittently. She has only concerning finding in the ER was hypotension and now the intubation had to be carried out. She has rather severe COPD and chronic respiratory failure. I will first admit her for this, and now for her admission to the hospital with blood gases pending as well as the CVP needs to be placed, an arterial line will be placed. She is on a sepsis protocol with vasopressin to be started. She is on maximum Levophed. PAST MEDICAL/SURGICAL HISTORY: She has past history as noted. Others included severe COPD, oxygen dependent, chronic anxiety, anemia of chronic disease, vitamin D deficiency, hyperlipidemia, depression disorder, phantom limb pain with graft that was removed in January from her right groin that was infected with MRSA, chronic diastolic congestive heart failure, severe peripheral vascular disease, inflammatory bowel disease, colitis, MRSA, C difficile senior living anticoagulation, has coronary heart disease and previous stents x3, nonhealing ulcers in the right lateral stump that has been removed now. 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 MEDICATIONS: Medications on coming into the hospital include: 1. Allopurinol. 2. Cholecalciferol. ADMIT: 04/17/2016 RM/LOC: 308 [facility] MR#: [id number] [address] [place] [id number] [place] [address] Consultation SEX: F AGE: 70 : 1945 3. Atorvastatin. 4. Lexapro. 5. Iron. 6. Folic acid. 7. Lasix. 8. Latanoprost eyedrops. 9. Protonix. 10.Plavix. 11.Trazodone. 12.Colestipol. 13.Florastor 250 a day. 14.Potassium. 15.Thiamine. 16.Mesalamine. 17.Gabapentin. 18.Tylenol. 19.Xanax. 20.Artificial Tears. 21.Duragesic. 22.Lortab. 23.DuoNeb. 24.Clotrimazole. 25.Cepacol. 26.Dulcolax. 27.Imodium. 28.Milk of magnesia. 29.Nitrostat. 30.Meyer spray. FAMILY HISTORY: The patient notes that her father of lung cancer. Mother from cirrhosis. No other history of TB or emphysema that was noted in the history. SOCIAL HISTORY: Resides at the [facility]. She is a former smoker, 1-2 packs a day for many years, quit about 2 years ago. No alcohol. Power of attorneys are Angel[employer] of [employer]. The patient, prior to the hospitalization in [place], living at facility at [facility] prior to that. REVIEW OF SYSTEMS: Unable to obtain due to the fact that she is on mechanical ventilator. PHYSICAL EXAMINATION: VITAL SIGNS: Her blood pressure is 70s to 60s, her heart rate is 110, and she has respiratory rate on mechanical ventilator now is 18 HEENT: No cervical lymphadenopathies around the Duragesic bradley. She has ecchymosis around her insertion sites. She is not very responsive to any command at all. ADMIT: 04/17/2016 RM/LOC: 308 [facility] MR#: [id number] [address] [place] [id number] [place] [address] Consultation SEX: F AGE: 70 : 1945 CHEST: Reveals marked diminished breast sounds in the left side. HEART: Reveals 2/6 systolic murmur and irregular pulse. ABDOMEN: Soft and obese. She has right leg amputation above the knee, appears to be covered with Vac of some sort. RECTAL AND PELVIC: Deferred. NEUROLOGIC: She is nonresponsive. Pupils are reactive. IMPRESSION: 1. Acute severe sepsis syndrome with hypotension and septic shock related to prior level of bacterial infection, neither from the lungs. 2. Severe pneumonia with hypotension. 3. Severe chronic obstructive pulmonary disease with chronic oxygen dependence. 4. Acute hypoxic respiratory failure, now the ET tube in the right mainstem has been pulled back. 5. Fever. 6. Hypotension. 7. Right [id number] amputation. 8. Severe peripheral vascular disease. 9. Coronary artery disease with previous stent placed. 10.Sinoatrial node dysfunction. 11.Chronic atrial fibrillation, on Eliquis anticoagulation. 12.Anemia of chronic disease. 13.Inflammatory bowel disease. 14.Elevated lipase. 15.Marked debility. RECOMMENDATIONS: Proceed with IV therapy including the Zosyn, vanco, clindamycin. Apparently, she had some reaction to Levaquin in the past, thus ADMIT: 04/17/2016 RM/LOC: 308 [facility] MR#: [id number] [address] [place] [phone] [place] [address] Consultation SEX: F AGE: 70 : 1945 we will treat with breathing treatments with the DuoNeb, Brovana, and Pulmicort. Steroids will need to be supplemented, given her hypotension. She is probably steroid dependent, and she may even be given selenium at this time in her life or at least partially give her selenium. Plan to monitor her CVP, place central catheter as well as an OG to do suction. Check chest x-ray and lactate, cultures, and procalcitonin, respiratory pathogens, or PCR. We will be monitoring her very cautiously here in the Intensive Care with further IV fluids and vasopressin if not responsive. We discussed with family further on Palliative Care consultation as she is very debilitated, and I do not know, she will be able to withstand all of these multiple hospitalizations, etc. EDIT: 04/18/2016 0713 njv Judson Ennis MD/ tiera JOB #: [id number] CC: Abner Benitez, Attending Physician Abner Benitez, Family Physician
--- NOTE | 2016-04-26 16:05 | DS ---
ADMIT: 04/17/2016 RM/LOC: 308 [facility] MR#: [id number] [address] [address] [place] [address] General Discharge Summary SEX: F AGE: 70 : 1945 ADMISSION DATE: 04/17/2016 DISCHARGE DATE: 04/18/2016 DISPOSITION: The patient succumbing to severe sepsis and septic shock. FINAL DISCHARGE DIAGNOSES: Consist of: 1. Respiratory failure with end-stage lung disease with hypoxic and hypercapnic respiratory failure. 2. Severe chronic obstructive pulmonary disease, oxygen dependent prior to coming in with sepsis, probably related to severe pneumonia and whiteout of left lung. 3. Marked bronchial thickening of mucus plugs of the left lung which required intubation and keeping high blood pressures. 4. Anemia of chronic disease. 5. Vitamin D deficiency. 6. Hyperlipidemia. 7. Major depressive disorder. 8. Generalized anxiety disorder. 9. Phantom right leg pain. 10.Chronic atrial fibrillation. 11.Diastolic congestive heart failure. 12.Peripheral vascular disease. 13.Severe colitis with bowel disease. 14.Methicillin-resistant Staphylococcus aureus with Clostridium difficile in the past. Long-term anticoagulation. 15.Cardiovascular disease, post stents x3. 16.Chronic nonhealing ulcers, right lateral stump. 17.Gout. 18.The patient had been a former smoker, at least for 20 years. HOSPITAL COURSE: This 70-year-old resident of the [facility] has been chronically ill, likely struggled through February 18 through the at [place], and for the prior 8 months have been living from August to January 2016 in the [facility] as well as transferred to [place] and then rehabbed here in [place], treated now here with a septic shock and evaluation to the presumably aspiration or other issue with her developing ARDS-like syndrome with complete whiteout of the left lung and infiltrates in the right lung. The patient was seen in the emergency room initially and we did pull back the ET tube. There was a large stomach bubble, and the NG suction was obtained. Bronchoscopy was performed in the intensive care unit with approximately 6 L of fluid and vasopressin, Levophed, and Harry- Synephrine all used. Attempted trying to maintain her blood pressures. Blood gases showed rather severe hypoxic hypercapnia. Sepsis protocol was started with the antibiotics within the first hour of therapy with IV fluids prior to the start of the pressors, elevation was noted of the procalcitonin and the lactate. During the hospitalization, the power of staff attorney did come into the hospital in the morning and we discussed with her, her wishes. Although, the patient initially wanted to maintain herself as a full code, we discussed with her the fact that with the compressions and multiple rib fractures given her ADMIT: 04/17/2016 RM/LOC: 308 [facility] MR#: [id number] [address] [place] [phone] [place] [address] General Discharge Summary SEX: F AGE: 70 : 1945 osteopenia, a central line was inserted. Bronchoscopy did show large amount of phlegm in the right main stem and ET tube was pulled back. Bronchoalveolar lavage was carried out in the right lower lobe and a left subclavian catheter was placed. Initial EKG demonstrated anterior T-wave abnormalities, possible septal infarct. Line verification showed endotracheal tube is in the pull back of the right main stem. Right lower lung partially consolidated opacities were also noted. Central line secured in position. Right IJ replaced in the emergency room. Initial white count 23,000 that later nitza. Hemoglobin of 9, creatinine of 1.8, INR was 1.2, BMP was 16,900. Troponin of 0.91, creatinine 1.8. Zosyn and vancomycin were started in the ER and continued during the hospitalization. The patient's power of staff attorney, Sheri Chan, did discuss end of life care with myself and with the nursing staff. We elected to have comfort care measures begun because the patient did not want to have a trach, her end of life be on a mechanical ventilator, which certainly she would. Other laboratory data is as noted. Decision was made to make her a full no code and thus end of life orders were written, comfort measures were begun, and the patient succumbed to this withdrawal from the mechanical ventilator after the pressors have been stopped. She was changed from full code to a no code during this hospitalization. Judson Ennis MD/ tiera JOB #: [id number] CC: Abner Benitez MD, Attending Physician Abner Benitez MD, Family Physician
--- NOTE | 2016-04-27 19:06 | HP ---
ADMIT: 04/17/2016 RM/LOC: 308 [facility] MR#: [id number] [address] [address] [place] [address] History and Physical SEX: F AGE: 70 : 1945 DATE OF SERVICE: CHIEF COMPLAINT: Hypoxia, hypotension, and altered mental status. CLINICAL HISTORY: The patient is a very frail, chronically ill 70-year-old, female who was transferred on the morning of 04/17/2016 from [facility] because of her altered mental status with hypoxia and significant hypotension. The patient has a history of recurrent sepsis in the past, history of COPD and recurring pneumonia. The patient has had a very complicated medical course over the last 8-9 months, having spent essentially 5 months essentially in the Hospital in [place] at [facility] from August of 2015 through January of 2016. The patient recently was admitted to [facility] after that extended hospital stay in [place]. She was admitted to the [facility] on 01/19/2016, has subsequently been hospitalized twice here at [facility], admitted on 02/19/2016 with hypotension, sepsis, and pneumonia, was in the hospital at that time from 02/19/2016 through 03/03/2016. She then went back to the senior living for approximately a month. She was readmitted here on 04/02/2016, with upper respiratory congestion and what was felt to be a bronchitis or early pneumonia with COPD exacerbation. Fortunately, she only spent 3 days in the hospital on that second admission. Since her discharge from here on 04/05/2016, she had been relatively stable at the senior living and had been improving. In fact, she was seen by the senior living respiratory therapist on 04/16/2016. She was having some scattered rhonchi and upper airway congestion, but was felt to be improving and stable. However, overnight, she had a dramatic change in status. She did not get up at her usual time on the morning of 04/17/2016, so when the staff checked on her, they found her to be hypotensive with significant tachycardia with heart rates running 110-120. She was having labored respirations and she was very confused which was felt to be related to her hypoxia. She was transported via ambulance to the ER. Her initial blood pressure en route to the hospital was 117/86. However, once she was admitted to the ER, her blood pressures dropped precipitously and she had blood pressure readings of 68/38, 57/38, and 44/26 in the ER. For that reason, a Levophed drip was started after she was given a fluid bolus. Her O2 sats with oxygen at 6 L were at best running in the 70-78 range. They were unable to get blood gases in the ER. Her chest x-ray in the ER showed extensive bilateral pneumonia, worse on the left, with also changes of congestive heart failure. She was found to be in atrial fibrillation with rapid ventricular response with decompensation of her cardiac status. She was also found to have severe pneumonia with acute on chronic respiratory failure. She was obtunded in the ER, unable to answer any questions. For that reason, she was intubated and started on ventilator management and transferred to the ICU with a diagnosis of sepsis with septic shock, acute on chronic respiratory failure with hypoxia with extensive bilateral pneumonia. I did call and talk with her [id number], who requested once again that we be aggressive in treating her pneumonia and she requested that we proceed with ventilator support if needed, but she also understood that the patient was critically ill and would possibly not survive this acute event. She was admitted to the ICU with a plan to get urgent Cardiology and Critical Care consults. ADMIT: 04/17/2016 RM/LOC: 308 [facility] MR#: [id number] [address] [place] [id number] [place] [address] History and Physical SEX: F AGE: 70 : 1945 PAST MEDICAL HISTORY: Recent hospitalizations; last hospitalized here at [facility] from 04/03/2016 through 04/05/2016. Prior to that, she had been hospitalized on 02/19/2016 through 03/03/2016. At that time, she spent most of that hospitalization in the ICU, was on the ventilator for 5 days during that admission. She had been hospitalized essentially continuously from August of 2015 through 01/19/2016 in [facility]. She struggled with recurring sepsis and pneumonia. She had gangrene of her right lower extremity. She ultimately underwent a right above-knee amputation on 09/03/2015. Her chronic medical problems are noted to include: 1. End-stage COPD, O2 dependent. 2. Chronic respiratory failure with hypoxia. 3. Anemia of chronic disease. 4. Peripheral vascular disease. 5. Hyperlipidemia. 6. Major depressive disorder. 7. Chronic atrial fibrillation. 8. Chronic diastolic congestive heart failure. 9. Severe pulmonary hypertension. 10.Inflammatory bowel disease/colitis. 11.History of MRSA. 12.History of C. difficile. 13.Long-term anticoagulation because of her atrial fibrillation. 14.Atherosclerotic coronary vascular disease, status post stenting on 3 previous occasions. 15.Nonhealing ulcer, right lateral stump. 16.Gout. 17.Chronic phantom limb pain. 18.Severe degenerative arthritis of the left knee. PREVIOUS SURGICAL PROCEDURES: Include her right above knee amputation in August of 2015 as well as prior heart catheterization and placement of stents on 3 occasions. ALLERGIES: THE PATIENT IS ALLERGIC TO IODINE, CLONAZEPAM, LACTOSE, AND QUESTIONABLE HISTORY OF ALLERGY TO LEVAQUIN. CURRENT MEDICATIONS: Include: 1. Allopurinol 300 mg daily. 2. Cholecalciferol 2000 units daily. 3. Atorvastatin 40 mg daily. 4. Lexapro 20 mg daily. 5. Ferrous sulfate 325 mg daily. 6. Folic acid 5 mg daily. 7. Lasix 20 mg daily. 8. Protonix 40 mg at bedtime. 9. Plavix 75 mg daily. 10.Trazodone 75 mg at bedtime. ADMIT: 04/17/2016 RM/LOC: 308 [facility] MR#: [id number] 26[address] [facility] [address] [place] [id number] [place]MAEL [place], [place] [address] History and Physical SEX: F AGE: 70 : 1945 11.Colestipol 1 g twice daily. 12.Florastor 250 mg daily. 13.Potassium 10 mEq twice a day. 14.Thiamine 100 mg twice a day. 15.Mesalamine 500 mg t.i.d. 16.Gabapentin 600 mg q.i.d. 17.Tylenol p.r.n. minor discomfort. 18.Xanax 0.25 mg every 8 hours p.r.n. anxiety. 19.Artificial Tears 1 drop both eyes three times a day for dry eyes. 20.Dulcolax suppository p.r.n. 21.Cepacol lozenges p.r.n. 22.DuoNeb via twin jet nebulizer every 4 hours q.i.d. and p.r.n. 23.Duragesic 12 mcg patch, changed every 72 hours for chronic pain. 24.Lortab 7.5 mg one every 4 hours for breakthrough pain. 25.Imodium A-D every 4 hours as needed for diarrhea. 26.Nitrostat sublingual p.r.n. chest pain. 27.Hideout Nasal [place] 2 whiffs each naris q.i.d. p.r.n. 28.Surfak 240 mg daily p.r.n. 29.Tessalon Perles 200 mg one every 6 hours as needed for cough. FAMILY HISTORY: The patient's father of lung cancer. Mother from alcoholic cirrhosis. She is unaware of any other significant family history. She has no living relatives and no children. SOCIAL HISTORY: The patient has been residing at [facility] since 01/19/2016. She is a former smoker, used to smoke up to 2 packs a day. Accumulated well over 100 pack year history. She denies any past history of alcohol or drug abuse. Her power of attorneys are Jorge and Sheri Nuno. Prior to being hospitalized in [place] in August, she had been living in an assisted living facility in [place]. Following that admission, her vu of insurance attorney who lives here in [place] had her move to [facility]. REVIEW OF SYSTEMS: Unable to get any review of systems from the patient at this time. When seen in the ER, she is unresponsive. She is hypoxic and hypotensive. Following my exam in the ER, she was intubated. Unable to get any additional history from the patient. According to the senior living, she had been alert, oriented, and in no acute distress on 04/16/2016, but had a dramatic change overnight. She has had no recent vomiting. Her diarrhea has been well controlled recently. She has had no chest pain or signs or symptoms of any acute cardiac events according to the senior living staff that I talked to at her time of transfer. Unable to obtain any further review of systems from the patient at this time. PHYSICAL EXAMINATION: VITAL SIGNS: Temp was 98.2, pulse was 134, respirations 22. Blood pressure initially in the ER on arrival is 116/33. However, her blood pressure dropped while in the ER to 68/38 and then dropped to a low of 44/26, at which time IV Levophed was started. ADMIT: 04/17/2016 RM/LOC: 308 [facility] MR#: [id number] [address] [place] [id number] [place] [address] History and Physical SEX: F AGE: 70 : 1945 GENERAL: The patient is a very frail, debilitated, 70-year-old female, who looks significantly older than her stated age. At this time, she is unresponsive and now intubated. HEENT: Revealed her ears to be clear. Her pupils were equal, somewhat sluggish, but did respond to light. No scleral icterus. No conjunctival inflammation. Her nose is unremarkable. Throat is noninflamed. ET tube is in place. NECK: Noted to have moderate neck vein distention. No cervical adenopathy. No neck masses. No carotid bruits. LUNGS: Noted to have diminished breath sounds. She has upper airway rhonchi. Good air movement on the ventilator. She has crackles in both bases. HEART: Noted to have a tachycardia with heart rate running in the 130-140 range. She has a grade 2/6 systolic murmur. She is in atrial fibrillation with rapid ventricular response. ABDOMEN: Somewhat protuberant, soft, and obese. There is no pain response when I palpate her abdomen. I cannot appreciate any abdominal masses or hernias. EXTREMITIES: She is status post right lower extremity amputation. She has an [id number] amputation stump. She does have an ulcer on the lateral aspect of her AK stump. NEUROLOGIC: She is unresponsive. I cannot appreciate any new focal deficits, but she is sedated and unresponsive on the ventilator at this time. INTEGUMENT: She does have some chronic areas of skin breakdown and irritation over the perineum and buttocks. She does have an ulceration on the lateral aspect of her right AK stump. No other significant skin rashes or areas of cellulitis. ASSESSMENT AT THE TIME OF ADMISSION: 1. Acute severe sepsis syndrome with septic shock. 2. Acute bilateral pneumonia. 3. Acute on chronic respiratory failure with hypoxia. 4. Severe end-stage chronic obstructive pulmonary disease with chronic oxygen dependence. 5. Acute hypoxic respiratory failure, now intubated on the ventilator. 6. Hypotension. 7. Atherosclerotic coronary vascular disease. 8. Atrial fibrillation with rapid ventricular response. 9. Acute on chronic diastolic heart failure. 10.Severe peripheral vascular disease. 11.Status post right above-knee amputation. 12.SA node dysfunction. 13.Anemia of chronic disease. 14.Inflammatory bowel disease. 15.Chronic cerebrovascular disease. ADMIT: 04/17/2016 RM/LOC: 308 [facility] MR#: [id number] 26[address] [facility] [address] [place] [id number] [place]MAEL [place], [place] [address] History and Physical SEX: F AGE: 70 : 1945 16.Pulmonary hypertension. PLAN: Plan is to admit the patient to the ICU. She was intubated and placed on a ventilator while in the ER. She was given fluid bolus in the ER and started on Levophed drip per protocol. We will admit to ICU and request urgent Critical Care consult as well as Cardiology consult. Her prognosis is extremely grim. I discussed with her [id number] the severity of her acute illness and the likelihood that she would not survive this acute event. Abner Benitez MD/ millil JOB #: [id number] CC: Abner Benitez MD, Attending Physician Abner Benitez MD, Family Physician MD Judson Jack MD
--- NOTE | 2016-05-03 16:58 | CO ---
ADMIT: 04/17/2016 RM/LOC: 308 [facility] MR#: [id number] [address] [address] [place] [address] Consultation SEX: F AGE: 70 : 1945 DATE OF CONSULTATION: 04/17/2016 ATTENDING PHYSICIAN: Abner Benitez CONSULTING PHYSICIAN: Ross Galindo MD REASON FOR CONSULTATION: Chronic congestive heart failure and atherosclerotic cardiovascular disease. HISTORY OF PRESENT ILLNESS: Joan is a 70-year-old female, admitted through the Emergency Department this morning. She had increasing shortness of breath and difficulty breathing. She was found to be septic and hypotensive and was initiated on IV fluids and Levophed. She was then intubated in the ER. She has a significant cardiac history with coronary artery disease,catheterization and prior stent placement x3, chronic atrial fibrillation, diastolic heart failure, and severe peripheral vascular disease. She is not known to any of our providers for cardiovascular management. She did have an echocardiogram performed on February 20 2016, that revealed an ejection fraction of 60%-65%. PAST MEDICAL HISTORY: Significant for multiple recent hospitalizations. She was hospitalized from August through January of 2016 at [facility] in [place] for recurrent sepsis. She was also hospitalized here at [facility] in February 2016 with sepsis, and subsequently March of 2016 with COPD exacerbation. Her chronic medical problems from the available records includes severe COPD, oxygen dependence, chronic respiratory failure with hypoxia, anemia of chronic disease, hyperlipidemia, major depressive disorder, chronic atrial fibrillation, chronic diastolic congestive heart failure, severe peripheral vascular disease, right lower leg amputation with chronic non-healing ulcer on the right lateral stump, inflammatory bowel disease, history of MRSA, atherosclerotic coronary vascular disease. PRIOR SURGICAL HISTORY: Available records reveal right above the knee amputation in 2015, heart catheterization and placement of stents x3. ALLERGIES: SHE IS ALLERGIC TO IODINE, CLONAZEPAM, LACTOSE, AND QUESTIONABLE HISTORY OF ALLERGY TO LEVAQUIN. MEDICATIONS: Records reveal that she has greater than 30 at-home medications, includin. Acetaminophen. 2. Alprazolam. 3. Allopurinol. 4. Artificial Tears. 5. Atorvastatin. 6. Bisacodyl. 7. Cepacol. 8. Vitamin D3. 9. Clotrimazole. ADMIT: 04/17/2016 RM/LOC: 308 [facility] MR#: [id number] [address] [address] [place] [address] Consultation SEX: F AGE: 70 : 1945 10.Colestipol. 11.DuoNeb. 12.Fentanyl patch. 13.Escitalopram. 14.Ferrous sulfate. 15.Florastor. 16.Folic acid. 17.Gabapentin. 18.[place]. 19.Lasix. 20.Latanoprost. 21.Loperamide. 22.Maalox. 23.Mesalamine. 24.Potassium chloride. 25.Milk of magnesia. 26.Mucinex. 27.Nitrostat. 28.Nystatin powder. 29.[place] nasal spray. 30.Pantoprazole. 31.Plavix. 32.Surfak. 33.Tessalon Perles. 34.Thiamine. 35.Trazodone. 36.Wellbutrin. 37.Prednisone. FAMILY HISTORY: From available records reveals her father of lung cancer. Her mother of cirrhosis. No other significant family history. SOCIAL HISTORY: From available records, the patient currently resides at [facility]. She is a former smoker, smoking 1-2 packs per day. She quit smoking about 2 years ago. The patient has a power of managing attorney. She has no close living relatives. REVIEW OF SYSTEMS: Unobtainable as the patient is on the ventilator. PHYSICAL EXAMINATION: VITAL SIGNS: Blood pressure 99/54, pulse 122, O2 saturation 91%. GENERAL: Sedated, on ventilator. SKIN: [place], warm and dry. EYES: Sclerae clear. No xanthelasmas. ENT: No jugular venous distention or carotid bruits. HEART: Irregular CHEST: Decreased breath sounds. HEART: Irregular rhythm. ADMIT: 04/17/2016 RM/LOC: 308 [facility] MR#: [id number] [address] [address] [place] [address] Consultation SEX: F AGE: 70 : 1945 ABDOMEN: Soft, bowel sounds positive. MUSCULOSKELETAL: Right lower extremity above the knee amputation. EXTREMITIES: No clubbing, cyanosis or edema of left lower extremity. ASSESSMENT: 1. Sepsis. 2. Hypotension. 3. Persistent atrial fibrillation. 4. Respiratory failure. PLAN: Her heart rate is fast but is appropriate for now. We will have her continue on her pressors. We would consider anticoagulation once she is more stable. Her mild troponin elevation is likely a demand ischemia. Her last ejection fraction on echo in February was normal. So for now, we will just continue supportive care. PABLO Loaiza Student / Ross Galindo MD / tiera JOB #: [id number] CC: Abner Benitez, Attending Physician Abner Benitez, Family Physician
== END 2016-04-18 07:46 | disposition expired | DRG 871 ==
LOC: ER 08:46 → 3ICU 11:30
PROVIDERS: ADMIT Family Medicine
PROC: 0BH17EZ Insertion of Endotracheal Airway into Trachea, Via Natural or Artificial Opening (ICD-10-PCS; principal; 2016-04-17)
PROC: 0B968ZX Drainage of Right Lower Lobe Bronchus, Via Natural or Artificial Opening Endoscopic, Diagnostic (ICD-10-PCS; principal; 2016-04-17)
PROC: 03HY32Z Insertion of Monitoring Device into Upper Artery, Percutaneous Approach (ICD-10-PCS; principal; 2016-04-17)
PROC: 5A1935Z Respiratory Ventilation, Less than 24 Consecutive Hours (ICD-10-PCS; principal; 2016-04-17)
PROC: 05H633Z Insertion of Infusion Device into Left Subclavian Vein, Percutaneous Approach (ICD-10-PCS; principal; 2016-04-17)
DX: A41.9 Sepsis, unspecified organism (principal); R65.21 Severe sepsis with septic shock; J96.92 Respiratory failure, unspecified with hypercapnia; I50.33 Acute on chronic diastolic (congestive) heart failure; J18.9 Pneumonia, unspecified organism; I24.8 Other forms of acute ischemic heart disease; I48.2 Chronic atrial fibrillation; J96.21 Acute and chronic respiratory failure with hypoxia; L97.819 Non-pressure chronic ulcer of other part of right lower leg with unspecified severity; Z51.5 Encounter for palliative care; J98.09 Other diseases of bronchus, not elsewhere classified; I49.5 Sick sinus syndrome; I73.9 Peripheral vascular disease, unspecified; G54.6 Phantom limb syndrome with pain; J44.9 Chronic obstructive pulmonary disease, unspecified; E55.9 Vitamin D deficiency, unspecified; D63.8 Anemia in other chronic diseases classified elsewhere; I25.10 Atherosclerotic heart disease of native coronary artery without angina pectoris; R53.81 Other malaise; Z99.81 Dependence on supplemental oxygen; F41.9 Anxiety disorder, unspecified; E78.5 Hyperlipidemia, unspecified; T87.89 Other complications of amputation stump; F32.9 Major depressive disorder, single episode, unspecified; Z86.14 Personal history of Methicillin resistant Staphylococcus aureus infection; K58.9 Irritable bowel syndrome, unspecified; Z79.01 Long term (current) use of anticoagulants; Z95.5 Presence of coronary angioplasty implant and graft; Z89.611 Acquired absence of right leg above knee; Z87.891 Personal history of nicotine dependence; Z66 Do not resuscitate